=== PATIENT | male | born 1985 | race Caucasian/White ===

== ENCOUNTER 2021-11-06 21:17 | Inpatient (IN) | payer BC, SELFPAY ==
[~2021-11-06] VITALS: Ht 180.3 cm; Wt 81.6 kg
[2021-11-06 21:19] VITALS: BP 136/97
--- NOTE | 2021-11-06 21:19 | NUR ---
PT BIBA ALS. TAKEN TO BED 9. DR. HOWELL AT BEDSIDE
--- NOTE | 2021-11-06 21:20 | NUR ---
[place] [facility] AT BEDSIDE
--- NOTE | 2021-11-06 21:35 | NUR ---
POINT OF CONTACT, ; [phone]
--- NOTE | 2021-11-06 21:36 | NUR ---
PT TAKEN TO RADIOLOGY
[2021-11-06 21:48] LABS: BASOPHILS % (AUTO) 0.2 % (0.0-2.0); HEMATOCRIT 45.6 % (36-52); HEMOGLOBIN 15.3 g/dL (12.0-18.0); LYMPHOCYTES # (AUTO) 0.7 K/uL (2.0-11.5); LYMPHOCYTES % (AUTO) 4.3 % (20.5-51.1); MEAN CORPUSCULAR HEMOGLOBIN 29 pg (27-31); MEAN CORPUSCULAR HGB CONC 34 g/dL (33-37); MEAN CORPUSCULAR VOLUME 85.8 fL (80-94); MONOCYTES # (AUTO) 0.7 K/uL (0.8-1.0); MONOCYTES % (AUTO) 4.6 % (1.7-9.3); NEUTROPHILS # (AUTO) 14.5 K/uL (1.8-7.7); NEUTROPHILS % (AUTO) 90.9 % (42.2-75.2); PLATELET COUNT (AUTO) 350 K/uL (140-450); RED BLOOD CELL COUNT(AUTO) 5.31 MIL/uL (4.20-6.10); RED CELL DISTRIBUTION WIDTH 13.7 % (11.6-13.7)
--- NOTE | 2021-11-06 21:55 | NUR ---
BACK FROM CT
--- NOTE | 2021-11-06 22:01 | NUR ---
PATIENT ATTEMPTING TO GIVE URINE SAMPLE AT THIS TIME.
--- NOTE | 2021-11-06 22:05 | NUR ---
URINE WALKED OVER TO LAB AT THIS TIME.
[2021-11-06 22:15] LABS: APPEARANCE,URINE CLEAR (CLEAR); BILIRUBIN,URINE NEGATIVE (NEGATIVE); BLOOD, URINE 1+ (NEGATIVE); COLOR,URINE YELLOW (YELLOW); LEUKOCYTE ESTERASE ,URINE NEGATIVE (NEGATIVE); NITRITE, URINE NEGATIVE (NEGATIVE); UGLUCOSE NEGATIVE (NEGATIVE)
[2021-11-06 22:20] LABS: RBC,URINE 0-5 /HPF (0-5)
--- NOTE | 2021-11-06 22:20 | NUR ---
PT PLACED ON A 5150 HOLD BY YARELIS MCCOLLUM
[2021-11-06] MEDS ORDERED: NACL 0.9% 1,000 ML IV ONE (22:30)
[2021-11-06] MEDS ORDERED: cefTRIAXone 2,000 MG in DEXTROSE 5% 100 ML IV ONE (22:30)
[2021-11-06 22:31] LABS: BARBITURATE, URINE NEGATIVE ng/ml (NEG <=200); BENZODIAZEPINE, URINE NEGATIVE ng/mL (NEG <=200); CANNABINOID, URINE POSITIVE ng/mL (NEG <=50); COCAINE, URINE NEGATIVE ng/mL (NEG <=300)
[2021-11-06 22:32] LABS: OPIATE, URINE NEGATIVE ng/mL (NEG <=2000); PHENCYCLIDINE SCREEN,URINE NEGATIVE ng/mL (NEG <=25)
--- NOTE | 2021-11-06 22:59 | NUR ---
PT MOVED TO BED #6
[2021-11-06 23:06] LABS: ACETAMINOPHEN < 0.5 ug/ml (10-30); ALBUMIN 4.6 g/dL (3.4-5.0); ANION GAP 20.9 (8-16); ASPARTATE AMINOTRANSFERASE 39 U/L (15-37); CARBON DIOXIDE 22.1 mmol/L (21-32); CHLORIDE 103 mmol/L (98-107); CREATININE 1.7 mg/dL (0.6-1.3); GFR ARICAN-AMERICAN 59 mL/min (>90); GLUCOSE 164 mg/dL (74-106); SALICYLATE < 2.8 mg/dL (2.8-20.0); SODIUM SERUM 143 mmol/L (136-145); TOTAL BILIRUBIN 1.3 mg/dL (0.0-1.0); UREA NITROGEN, BLOOD 13 mg/dL (7-18)
[2021-11-06] MEDS ORDERED: cefTRIAXone 2,000 MG VIAL ONE (23:26)
--- NOTE | 2021-11-07 00:15 | NUR ---
S/W CHITRA, WHO PROVIDED ADDITIONAL INFORMATION. PER CHITRA, PT HAS HAD A GREAT DEAL OF STRESS AND FAMILY WITHIN PAST WEEK. PT HAS NOT EATEN OR SLEEP IN 3-4 DAYS PER . PER "I THINK ALL THIS IS WHAT IS CAUSING HIM TO ACT LIKE THIS."
--- NOTE | 2021-11-07 00:50 | NUR ---
LAB AT BEDSIDE
--- NOTE | 2021-11-07 00:52 | NUR ---
PT AMBULATED TO RESTROOM.
--- NOTE | 2021-11-07 01:55 | NUR ---
PT AMBULATED TO RESTROOM.
--- NOTE | 2021-11-07 02:02 | NUR ---
Patient appears to be resting comfortably in bed. Vital Signs within normal limits. Respirations even and unlabored. BOTH BED RAILS UP AND BED AT LOWEST POSITION.
[2021-11-07] MEDS: POTASSIUM CHLORIDE 10 MEQ TABER PO SCH ×3 (02:56→04:16)
--- NOTE | 2021-11-07 04:10 | NUR ---
NURYS AND RUPERTO COLLECTED AND SENT TO LAB.
--- NOTE | 2021-11-07 04:17 | NUR ---
Patient appears to be resting comfortably in bed. Vital Signs within normal limits, BLOOD PRESSURE ELEVATED, MD NOTIFIED. Respirations even and unlabored. BOTH BED RAILS DOWN AND BED AT LOWEST POSITION.
[2021-11-07] MEDS ORDERED: LACTATED RINGERS 1,000 ML IV ONE ×2 (04:30)
--- NOTE | 2021-11-07 05:00 | NUR ---
HANDOFF RECEIVED FROM KAIDEN CORRALES. ASSUMED CARE AT THIS TIME. PT SEEN IN BED, VISIBLE CHEST RISE AND FALL NOTED. 1:[address] SAFETY MEASURES IN PLACE. ALL NEEDS MET AT THIS TIME. WILL CONTINUE TO MONITOR.
--- NOTE | 2021-11-07 05:15 | NUR ---
PT AMBULATORY TO AND FROM RESTROOM, UNASSISTED. STEADY GAIT OBERSEVED.
[2021-11-07] MEDS ORDERED: NACL 0.9% 1,000 ML IV SCH (05:55)
--- NOTE | 2021-11-07 06:40 | NUR ---
RECEIVED REPORT FROM ROSY RESENDIZ, TRANSFER OF CARE AT THIS TIME. PT APPEARS RESTING IN BED WITH EVEN AND UNLABORED RESPIRSTIONS, NO SIGNS OF DISTRESS. WILL CONTINUE TO MONITOR.
--- NOTE | 2021-11-07 07:05 | NUR ---
PT SITTING UP IN BED. PT STATED "I FEEL MUCH BETTER". PT ONLY ORIENTED TO NAME. UNAWARE OF WHAT HAPPENED OR WHERE HE IS. PT DENIES HI/SI. PT HAS REDDNESS TO TOP OF FOREHEAD. PT ALSO HAS REDNESS/SWELLING ON BILATERAL WRISTS FROM HANDCUFFS/RESTRAINTS FROM PD/MEDICS PRIOR TO ARRIVAL TO ED. 1:[address], WILL CONTINUE TO MONITOR
[2021-11-07] MEDS: NACL 0.9% 1,000 ML IV SCH ×3 (07:14→19:20)
--- NOTE | 2021-11-07 07:39 | NUR ---
PATIENT APPEARS TO BE RESTING COMFORTABLY.
--- NOTE | 2021-11-07 07:55 | NUR ---
PT BEING TELEPSYCHED AT THIS TIME. PT ANSWERING SELECT QUESTIONS. RECEIVED VERBAL ORDER FROM DR AMOR FOR HALDOL 2MG IM WITH ATIVAN 2MG IM PRN FOR AGITATION.
--- NOTE | 2021-11-07 07:59 | NUR ---
PT IS EATING HIS BREAKFAST.
[2021-11-07] MEDS ORDERED: LORazepam 2 MG/ML VIAL IM PRN (08:25)
[2021-11-07] MEDS ORDERED: HALOPERIDOL IM 5 MG/ML VIAL IM PRN (08:25)
--- NOTE | 2021-11-07 08:33 | NUR ---
PT DONE WITH BREAKFAST, 50 % CONSUMED.
--- NOTE | 2021-11-07 08:53 | NUR ---
PATIENT HAS BEEN SCREENED AND CATEGORIZED LOW NUTRITION RISK. PATIENT WILL BE SEEN WITHIN 7 DAYS OF ADMISSION. 11/13/[address]
--- NOTE | 2021-11-07 08:54 | NUR ---
PATIENT SOILED BED, PROVIDED PATIENT W/ NEW BEDSHEETS, GOWN AND BLANKETS.
--- NOTE | 2021-11-07 10:25 | NUR ---
PATIENT APPEARS TO BE RESTING COMFORTABLY. ALL NEEDS MET AT THIS TIME
--- NOTE | 2021-11-07 10:41 | NUR ---
DR. ORTEZ EVALUATING PATIENT AT BEDSIDE
[2021-11-07] MEDS ORDERED: MORPHINE SULFATE 2 MG/ML SYR IVP PRN (11:20)
[2021-11-07] MEDS ORDERED: HYDROcodone/APAP 5/325 MG 1 TAB TAB PO PRN (11:20)
[2021-11-07] MEDS ORDERED: MAG SULF 2000 MG/WATER PREMIX 50 ML IV PRN (11:20)
[2021-11-07] MEDS ORDERED: ONDANSETRON 4 MG/2 ML VIAL IM/IVP PRN (11:20)
[2021-11-07] MEDS ORDERED: POTASSIUM CHLORIDE 10 MEQ TABER PO PRN (11:20)
[2021-11-07] MEDS ORDERED: ZOLPIDEM 5 MG TAB PO PRN (11:20)
[2021-11-07] MEDS ORDERED: ACETAMINOPHEN 325 MG TAB PO PRN (11:20)
[2021-11-07] MEDS ORDERED: DOCUSATE SODIUM 100 MG GELCAP PO PRN (11:20)
--- NOTE | 2021-11-07 12:29 | NUR ---
PT PROVIDED LUNCH TRAY BUT REFUSED TO EAT. PT STATED "JUST TAKE IT AWAY".
[2021-11-07] MEDS ORDERED: MIDAZOLAM 5 MG/1 ML VIAL NS ONE (13:15)
[2021-11-07] MEDS ORDERED: diphenhydrAMINE 50 MG/ML VIAL IM ONE (13:15)
[2021-11-07] MEDS ORDERED: diphenhydrAMINE 50 MG/ML VIAL ONE (13:15)
--- NOTE | 2021-11-07 13:15 | NUR ---
PT IS EXPERIENCING AUDITORY AND VISUAL HALLUCINATIONS AT THIS TIME ALONG WITH TALKING TO HIMSELF. PT REORIENTED AT THIS TIME
[2021-11-07] MEDS ORDERED: HALOPERIDOL IM 5 MG/ML VIAL IM ONE (13:20)
--- NOTE | 2021-11-07 13:29 | NUR ---
PATIENT STARTED BECOMING AGITATED, PULLED MEDICATIONS TO GIVE PRN MEDICATIONS FOR AGITATION. WHILE ATTEMPTING TO GIVE MEDICATIONS, PT BECAME EXTREMELY COMBATIVE, SCREAMING, JUMPED OUT OF BED AND ATTEMPTING TO AWOL. ANGELIQUE ROPER CALLED. YARELIS MCCOLLUM CALLED AT BEDSIDE FOR ASSISTANCE. ADMINISTERED 50 MG BENDRYL, 5 MG HALDOL AND 2 MG ATIVAN IM PER ER DOCTOR SIN ORDER. PT ASSISTED BACK TO BED, PLACED IN [address] NEELIMA POND.
[2021-11-07] MEDS ORDERED: OLANZapine 10 MG VIAL IM SCH (13:44)
[2021-11-07] MEDS ORDERED: WATER STERILE 10 ML MC ONE (13:49)
[2021-11-07] MEDS ORDERED: OLANZapine 10 MG VIAL IM ONE (13:49)
--- NOTE | 2021-11-07 14:45 | NUR ---
CALLED DR ORTEZ REGARDING IV ACCESS. PT RIPPED OUT IV DURING INCIDENT. I WILL ATTEMPT TO REINSERT IV, IF UNSUCCESSFUL, OKAY TO ADMIT TO FLOOR WITHOUT IV ACCESS.
--- NOTE | 2021-11-07 14:56 | NUR ---
RECEIVED CALL FROM [place] [facility] OFFICER BRYSON. PER OFFICER, HE IS REQUESTING THE HOSPITAL TO NOTIFY [place] [facility] NON EMERGENCY LINE WHEN HE IS BEING DISCHARGED, PT UP FOR CRIMINAL CHARGES.
--- NOTE | 2021-11-07 15:15 | NUR ---
RECEIVED REPORT FROM ER NURSE FOR CONTINUITY OF CARE. PT WAS BROUGHT FROM THE ER VIA GURNEY IN FOUR POINT RESTRAINS ACCOMPANIED BY DOPE FIRER AND NURSES. PT WAS AWAKE AND ALERT. PT WAS IN ROOM AIR AND NO SKIN WAS WARM AND DRY. BILATERAL WRITS HAD REDNESS DUE TO HAND CUFFS. PT HAD FULL ROM ON ALL EXTREMITIES. PT IS INCONTINENT AND VITAL SIGNS ARE WNL. ALL SAFETY PRECAUTIONS ARE IN PLACE AND WILL CONTINUE TO MONITOR.
--- NOTE | 2021-11-07 15:30 | NUR ---
PT TRANSFERRED TO ICU BED 8. EYES CLOSED, PERRL. MUMBLING, SPEECH INCOHERENT. SEMI FOWLERS. 4 POINT HARD RESTRAINTS BOTH ANKLES, R WRIST TO R MIDDLE OF BED, L WRIST TO L HEAD OF BED, NO S/S OF COMPROMISED SKIN INTEGRITY. ON ROOM AIR. NO F/C IN PLACE. DROPLET PRECAUTIONS IN PLACE FOR PENDING PCR. ALL SAFETY PRECAUTIONS IN PLACE. BED IN LOWEST POSITION, SIDE RAILS X2 UP. CALL LIGHT WITHIN REACH. ALL NEEDS ARE MET AT THIS TIME.
--- NOTE | 2021-11-07 15:30 | NUR ---
GAVE REPORT TO NANCY RESENDIZ FOR ADMISSION TO ICU.
--- NOTE | 2021-11-07 15:37 | NUR ---
Patient will be admitted to care of DR ORTEZ. Admited to ICU. Will go to room 8. Belongings list completed. Report to NANCY RESENDIZ.
[2021-11-07] MEDS: VALPROIC ACID 250 MG/5 ML UDC PO SCH (17:00)
[2021-11-07 17:14] VITALS: BP 151/87
--- NOTE | 2021-11-07 17:20 | NUR ---
SPOKE TO DR ORTEZ REGARDING PT REFUSAL OF BLOOD DRAW, IV INSERTION AND MEDICATION ADMINISTRATION. AWARE. TO CONTINUE TO MONITOR.
--- NOTE | 2021-11-07 19:13 | NUR ---
GAVE BEDSIDE REPORT TO AURORA RESENDIZ AND VINICIO RESENDIZ FOR CONTINUITY OF CARE.
--- NOTE | 2021-11-07 19:30 | NUR ---
ASSUMED CARE OF PT.PT ASLEEP EASILY AROUSABLE.PT LOOKS AT CLUTCH SPECIALIST WHEN QUESTION IS ASKED; DOES NOT ANSWER.ON 4 POINT RESTRAINTS.NO SIGNS OF INJURIES NOTED.ON ROOM AIR.NO SOB NOTED.SINUS ARRHYTHMIA NOTED ON MONITOR.PT NO IV ACCESS, PER AM NURSE DR NEELIMA CRUZ IS AWARE.WILL CONTINUE TO CLOSELY MONITOR PT
[2021-11-07 20:00] VITALS: BP 149/89
--- NOTE | 2021-11-07 20:00 | NUR ---
PT AWAKE,APPEARS TO BE WATCHING TV, STILL DOES NOT ANSWER QUESTIONS.STILL ON 4 POINT RESTRAINTS.WILL CONTINUE TO MONITOR PT
[2021-11-07] MEDS ORDERED: OLANZapine 5 MG TAB PO SCH (21:00)
[2021-11-07 22:00] VITALS: BP 153/68
--- NOTE | 2021-11-07 23:29 | NUR ---
PT AWAKE; INCONTINENT OF URINE; PT LET ALARM INSTALLATION TECHNICIAN CHANGED THE PADS BUT NOT THE GOWN AND THE SHEET; GETTING AGITATED. REORIENTED.WILL CONTINUE TO MONITOR PT
[2021-11-08] VITALS (12 sets, daily range): BP systolic 115–178; BP diastolic 58–106
--- NOTE | 2021-11-08 | NUR ---
NURSE AND NURSE EPIC WILLOW ANALYST AT BEDSIDE TO CHANGE RESTRAINTS POSITION;PT REFUSED AND STARTED TO GET AGITATED; SHOUTING.LEFT UNDISTURBED.
--- NOTE | 2021-11-08 00:57 | NUR ---
STAFF AT BEDSIDE TO CHANGE POSITION OF THE PTS ARMS, AT FIRST,PT RESTLESS AND AGITATED THEN HE CALMED DOWN AND LET THE STAFF DO IT.ALSO OFFERED FOOD; PT REFUSED BUT HAD A CUP OF WATER.
[2021-11-08] MEDS: NACL 0.9% 1,000 ML IV SCH ×4 (02:00→20:14)
--- NOTE | 2021-11-08 02:00 | NUR ---
PT ASLEEP; NO S/SX OF RESP DISTRESS.NO SIGNS OF PAIN NOTED.
--- NOTE | 2021-11-08 04:15 | NUR ---
BOAT TENDER AT BEDSIDE TO DRAW BLOOD; PT REFUSED.
--- NOTE | 2021-11-08 06:08 | NUR ---
PT INCONTINENT OF URINE.CLEANED.NEW PADS IN PLACE AND GOWN CHANGED.COMPLIANT WITH CARE AT THIS TIME. OFFERED FOOD,PT STILL REFUSED.GIVEN JUICE AND WATER, TOLERATED.
--- NOTE | 2021-11-08 07:30 | NUR ---
RECEIVED REPORT FROM DIAMANTE RESENDIZ. PT IN BED WITH 4 POINT RESTRAIN AWAKE RESPONSE TO QUESTION WELL.
--- NOTE | 2021-11-08 08:31 | NUR ---
PATIENT HAS BEEN CATEGORIZED HIGH NUTRITION RISK D/T REFERRAL FOR REFUSE TO EAT OVER 3 DAYS. PATIENT WILL BE SEEN TODAY. MUKESH FOREMAN RD
[2021-11-08] MEDS: VALPROIC ACID 250 MG/5 ML UDC PO SCH ×3 (09:00→17:23)
[2021-11-08] MEDS: OLANZapine 5 MG TAB PO SCH ×2 (09:00→20:14)
--- NOTE | 2021-11-08 10:00 | NUR ---
IV FLUID STARTED ON LT AC #18. BLOOD DRAW FOR LAB.
--- NOTE | 2021-11-08 10:17 | NUR ---
DC PLANNING: PATIENT WAS BIB PD FROM HOME AFTER ACTING OUT WITH HIS AND PD. PATIENT WAS PLACED ON A 5150 HOLD. FINDINGS OF RHABDOMYOLYSIS WITH CK AT 2520, LACTIC ACID 5.3, WBC 16. PSYCH EVALUATION DONE IN ED, RECOMMENDATION FOR TRANSFER TO IP PSYCH. PATIENT WAS TRANSFERRED TO ICU AFTER ANOTHER EPISODE OF ACTING OUT, ANGELIQUE JUAREZ CALLED. PATIENT IN 4 POINT RESTRAINTS, PER NURSING PATIENT IS TAKING HIS PO MEDICATIONS AND ALLOWING IV ACCESS AND LABS. PATIENT ALSO ATE MOST OF HIS BREAKFAST AND LUNCH AND IS ANSWERING QUESTIONS AT TIMES. FABIAN SPOKE WITH THE PATIENTS RN INDRA, ENDORSED F/U WITH TELEPSYCH AND POTENTIAL NEED TO HAVE THE PATIENTS 5150 RENEWED. CM SPOKE WITH THE PATIENTS BY PHONE, CONFIRMED HIS ADDRESS AND PHONE NUMBER. HE LIVES WITH HIS AND 2 CHILDREN IN A 2 STORY TOWN[place], PATIENT IS CURRENTLY NOT WORKING. HE IS INDEPENDENT IN ALL ACTIVITIES AND HAS NO DME OF H/O HOME HEALTH. FABIAN SPOKE WITH KAVEH AT TO ASK ABOUT TRANSFERRING THE PATIENT IN-NETWORK. SHE STATES THAT THE PATIENT IS MANAGED BY THE NATIONAL CM UNIT, GIVEN CONTACT FOR CM OF [facility], . FABIAN LEFT A MESSAGE FOR [facility] ASKING TO DISCUSS MOVING THE PATIENT IN-NETWORK IF HE'S OUT OF NETWORK. FABIAN WILL FOLLOW FOR NEEDS. Addendum: 11/09/21 at 1401 by Debbie Gallardo CM DC PLANNING: THE PATIENT WAS RE-EVALUATED BY PSYCHIATRY VIA TELEHEALTH, RECOMMENDATION REMAINS FOR IP PSYCH WHEN PATIENT IS STABLE. HIS CK TODAY IS 2432, PATIENT IS NOW TAKING IS PO'S AND EATING BUT IS VERY SLEEPY. FABIAN ALSO SPOKE WITH HIS ULYSSES WHO ASKED FOR AN UPDATE WHICH WAS GIVEN. WAITING FOR MEDICAL CLEARANCE TO TRANSFER TO IP PSYCH, FABIAN WILL FOLLOW FOR NEEDS. Addendum: 11/10/21 at 1350 by Debbie Gallardo CM DC PLANNING: FABIAN SPOKE WITH PATIENT AT BEDSIDE AND EXPLAINED THE CURRENT TREATMENT PLAN INCLUDING STABILIZATION OF HIS MEDICAL STATUS AND POTENTIAL TRANSFER TO FOR IP PSYCHIATRIC MANAGEMENT. ALSO ENDORSED THAT YARELIS MCCOLLUM WOULD BE COMING TO RE-EVALUATE HIM FOR A 5150 HOLD. YARELIS MCCOLLUM CAME AND EVALUATED THE PATIENT, HE DOES NOT MEET CRITERIA FOR CONTINUED 5150. FABIAN SPOKE WITH THE AIME ED DIRECTOR, NO ONE ON PREMISES TODAY THAT CAN EVALUATE FOR A 5150. MESSAGE LEFT FOR [facility] ASKING TO SPEAK WITH DR. FRASER THE MD WHO EVALUATED THE PATIENT THIS MORNING TO DISCUSS THE PLAN MOVING FORWARD. C YARELIS MCCOLLUM ALSO STATE THAT IF THE PATIENT IS GOING TO BE DISCHARGED THAT THEIR DISPATCH NUMBER NEEDS TO BE CALLED WHICH IS [phone]. FABIAN THEN SPOKE WITH DR FRASER BY PHONE TO UPDATE HER, SHE STATES THAT SHE BELIEVES THAT THE PATIENT IS GRAVELY DISABLED AND NEEDS IP PSYCHIATRIC CARE AND THAT OUTPATIENT MANAGEMENT WILL NOT BE ADEQUATE OR APPROPRIATE. FABIAN SPOKE WITH DAVID AT [facility] WHO STATES THAT WE SHOULD NOT PURSUE ANOTHER 5150 UNTIL THE PATIENT HAS BEEN MEDICALLY CLEARED HIS CK IS TOO HIGH FOR A PSYCH FACILITY TO ACCEPT HIM. HOSPITAL STAFF WHO CAN WRITE A HOLD SHOULD BE THE FIRST OPTION FOR A 5150 HOLD ONCE THE PATIENT IS MEDICALLY STABLE OPPOSED TO [place] [facility]. FABIAN WILL FOLLOW FOR NEEDS.
[2021-11-08] MEDS: METOPROLOL 25 MG TAB PO SCH ×2 (12:30→20:14)
--- NOTE | 2021-11-08 12:55 | NUR ---
CALL JACKY MCKEON [[phone]] FOR YEE OLMOS REGARDING 72 HOUR HOLD,
--- NOTE | 2021-11-08 13:41 | NUR ---
11/08/21 RD INITIAL ASSESSMENT COMPLETED PLEASE REFER TO NUTRITION ASSESSMENT UNDER CARE ACTIVITY FOR ESTIMATED NUTRITIONAL NEEDS. 1. CONTINUE REGULAR DIET TOLERATED 2. RECOMMEND MIGHTYSHAKES ORAL SUPPLEMENT BID -WILL PROVIDE [address] KCAL [address] TO FOLLOW-UP 3-5 DAYS, MODERATE RISK MUKESH FOREMAN RD
--- NOTE | 2021-11-08 14:00 | NUR ---
[facility] CALL BACK ON FACE TIME , ASK TO TALK TO PATENT BUT PT. IS TOO SLEEPY TO TALK.[[phone].
[2021-11-08 15:18] LABS: BASOPHILS # (AUTO) 0.1 K/uL (0.00-0.22); BASOPHILS % (AUTO) 0.6 % (0.0-2.0); EOSINOPHILS % (AUTO) 0.2 % (0.0-4.0); HEMATOCRIT 42.9 % (36-52); HEMOGLOBIN 14.3 g/dL (12.0-18.0); LYMPHOCYTES % (AUTO) 18.5 % (20.5-51.1); MEAN CORPUSCULAR HEMOGLOBIN 29 pg (27-31); MEAN CORPUSCULAR HGB CONC 33 g/dL (33-37); MEAN CORPUSCULAR VOLUME 86.9 fL (80-94); MONOCYTES # (AUTO) 0.9 K/uL (0.8-1.0); MONOCYTES % (AUTO) 8.1 % (1.7-9.3); NEUTROPHILS # (AUTO) 7.9 K/uL (1.8-7.7); NEUTROPHILS % (AUTO) 72.6 % (42.2-75.2); PLATELET COUNT (AUTO) 289 K/uL (140-450); RED BLOOD CELL COUNT(AUTO) 4.93 MIL/uL (4.20-6.10); RED CELL DISTRIBUTION WIDTH 14.2 % (11.6-13.7); WHITE BLOOD COUNT (AUTO) 10.9 K/uL (4.8-10.8)
--- NOTE | 2021-11-08 16:07 | NUR ---
CALLED [place] [facility] OFFICER DYAN [phone] REGARDING 5150 RENEW BY [facility],
[2021-11-08 16:32] LABS: ANION GAP 15.5 (8-16); CARBON DIOXIDE 25.5 mmol/L (21-32); CREATININE 1.1 mg/dL (0.6-1.3)
--- NOTE | 2021-11-08 16:40 | NUR ---
DR. ORTEZ ORDER TO D/C KEEP CLOSE OBSERVATION,
[2021-11-08 16:52] LABS: MAGNESIUM 2.4 mg/dL (1.8-2.4); PHOSPHORUS 2.8 mg/dL (2.5-4.9)
--- NOTE | 2021-11-08 16:55 | NUR ---
JONAH MCCOLLUM SHOW UP AND AWARE THAT PT. 5150 IS RENEW, AND PT PT, WILL BE TRANSFER TO PS FACILITY.CALL THE PD BEFORE D/C THIS PATION.
[2021-11-08 17:02] LABS: CHOL/HDL RATIO 2.9 (1-4.5)
--- NOTE | 2021-11-08 18:15 | NUR ---
DR. ORTEZ NOTIFIED PT BP IS 168/113 ORDER TO GIVE HYDRALAZINE 5MG/6HR PRN WHEN BP ABOVE 160.
--- NOTE | 2021-11-08 18:30 | NUR ---
DINNER TAKEN WELL.
--- NOTE | 2021-11-08 18:45 | NUR ---
HYDRALAZINE 5MG GIVEN ORDERED.
[2021-11-08] MEDS: hydrALAZINE 10 MG TAB PO PRN (18:51)
--- NOTE | 2021-11-08 19:06 | NUR ---
PT AWAKE AND ALERT , COOPERATIVE ,DENIED PAIN .
--- NOTE | 2021-11-08 19:20 | NUR ---
PT. SLEEPING QUIETLY, REPORT GIVE TO DIAMANTE RESENDIZ FOR CONTINUE CARE,
--- NOTE | 2021-11-08 19:30 | NUR ---
ASSUMED CARE OF PT.PT AWAKE, ABLE TO COMMUNICATE NEEDS,REFUSED FOR NURSE TO DO COMPLETE ASSESSMENT.SR ON MONITOR.W/PERIPHERAL IV TO LT F/A G18 INTACT INFUSING ORDERED IVF.ON ROOM AIR.NO SOB NOTED.DENIES N/V.ATE 100% OF DINNER.PT DID NOT URINATE AT THIS TIME.ABLE TO MOVE ALL EXTREMITIES .WILL CONTINUE TO CLOSELY MONITOR PT.
--- NOTE | 2021-11-08 20:15 | NUR ---
PHONE CALL FROM PTS ULYSSES, UPDATED ON PTS PRESENT CONDITION.QUESTIONS ANSWERED.NOTIFIED ULYSSES PT REFUSED TO TALK TO HER AT THIS TIME
--- NOTE | 2021-11-08 22:00 | NUR ---
PT USED CALL LIGHT.NURSE WENT INSIDE THE ROOM AND ASKED PT WHAT HE NEEDS,PT JUST STARED ON THE NURSE/AUTOMOBILE BODY REPAIRER HELPER AND DIDN'T SAY ANYTHING.NO S/SX OFP AIN NOTED.WILL CONTINUE TO CLOSELY MONITOR PT
[2021-11-09] VITALS (11 sets, daily range): BP systolic 120–173; BP diastolic 53–110
--- NOTE | 2021-11-09 | NUR ---
PT ASLEEP EASILY AROUSABLE ;ON ROOM AIR.NO SOB NOTED.DENIES PAIN
--- NOTE | 2021-11-09 02:00 | NUR ---
PT ASLEEP;EASILY AROUSABLE.IV ACCESS INTACT WITH IVF INFUSING.DENIES PAIN.NO SOB ON ROOM AIR
--- NOTE | 2021-11-09 04:25 | NUR ---
PTS CONDITION REMAINS UNCHANGED.PT DID NOT URINATE YET; REFUSED TO BE CHECKED.WILL STARE AT NURSE IF QUESTIONED.
[2021-11-09] MEDS: NACL 0.9% 1,000 ML IV SCH ×4 (04:38→20:34)
--- NOTE | 2021-11-09 04:59 | NUR ---
TOPPER PRESS OPERATOR AT BEDSIDE WITH RN, INITIALLY PT REFUSED BLOOD DRAW; EXPLAINED TO PT THE NEED TO CHECK LABS, PT THEN AGREED. ALSO ASKED PT TO URINATE USING URINAL ,ABLE TO DO SO W/ 200ML OF LIGHT JERRY COLORED URINE
--- NOTE | 2021-11-09 06:18 | NUR ---
PT AWAKE WATCHING TV.PT NOT TALKING AT THIS TIME;PT ANSWERS QUESTIONS BY NODDING/SHAKING HEAD ONLY.STILL REFUSING MORNING CARE AND ORAL CARE.SHOOK HEAD WHEN ASKED IF HE IS IN PAIN.ALSO INFORMED HIM THAT ULYSSES CALLED.HE SHOOK HEAD WHEN ASKED IF HE WANTS TO TALK TO .
[2021-11-09 06:21] LABS: BASOPHILS % (AUTO) 0.4 % (0.0-2.0); EOSINOPHILS # (AUTO) 0.1 K/uL (0-0.4); EOSINOPHILS % (AUTO) 1.6 % (0.0-4.0); HEMOGLOBIN 13.1 g/dL (12.0-18.0); LYMPHOCYTES # (AUTO) 2.1 K/uL (2.0-11.5); LYMPHOCYTES % (AUTO) 24.9 % (20.5-51.1); MEAN CORPUSCULAR HEMOGLOBIN 29 pg (27-31); MEAN CORPUSCULAR HGB CONC 34 g/dL (33-37); MEAN CORPUSCULAR VOLUME 86.1 fL (80-94); MONOCYTES # (AUTO) 0.7 K/uL (0.8-1.0); MONOCYTES % (AUTO) 8.4 % (1.7-9.3); NEUTROPHILS # (AUTO) 5.4 K/uL (1.8-7.7); NEUTROPHILS % (AUTO) 64.7 % (42.2-75.2); PLATELET COUNT (AUTO) 251 K/uL (140-450); RED BLOOD CELL COUNT(AUTO) 4.53 MIL/uL (4.20-6.10); RED CELL DISTRIBUTION WIDTH 13.7 % (11.6-13.7); WHITE BLOOD COUNT (AUTO) 8.4 K/uL (4.8-10.8)
[2021-11-09 06:26] LABS: ANION GAP 11.7 (8-16); CARBON DIOXIDE 28.9 mmol/L (21-32); CREATININE 1.1 mg/dL (0.6-1.3); POTASSIUM 3.6 mmol/L (3.5-5.1)
[2021-11-09 06:43] LABS: MAGNESIUM 2.3 mg/dL (1.8-2.4); PHOSPHORUS 3.4 mg/dL (2.5-4.9)
[2021-11-09] MEDS: OLANZapine 5 MG TAB PO SCH ×2 (08:19→20:41)
[2021-11-09] MEDS: VALPROIC ACID 250 MG/5 ML UDC PO SCH ×3 (08:19→17:20)
[2021-11-09] MEDS: METOPROLOL 25 MG TAB PO SCH ×2 (08:19→20:41)
--- NOTE | 2021-11-09 08:26 | NUR ---
SCHEDULE MED TAKEN , DRINK JUICE DOES NOT BREAKFAST AT THIS TIME..
--- NOTE | 2021-11-09 11:30 | NUR ---
SW CALL THE [facility] TO MAKE SURE PATIENT'S 5150 HOLD, CLINICALS PACKET, AND INFORMATION HAS BEEN RECEIVED AND PROCESS FOR PLACEMENT SEARCH TO PSYCH FACILITY. PER TIEN NO INFORMATION WAS SEND TO THEM OF TODAY 11/09/2021 ABOUT 11:30 AM. SW DISCUSS PATIENT'S STATUS AND WILL SEND CLINICAL PACKET. SW CALL THE [facility] TO CONFIRMED THAT PATIENT'S CLINICALS PACKET HAS BEEN SEND AND PROCESS. PER AMMY NO PACKET HAS BEEN RECEIVED OF 12:00PM SW WILL RE -SEND PACKET TO [facility]. Addendum: 11/09/21 at 1706 by Shelly WILLSON MARITZA SPOKE WITH THE PATIENTS ASTRID MENDEZ, VAISHALI F/U WITH POTENTIAL NEED TO HAVE THE PATIENTS 5150 RENEWED. CURRENT 5150 HOLD WILL BE EXPIRING TONIGHT AT ABOUT 21:48. MARITZA ALSO EXPLAINED TO RN THE NEED FOR NEW 5150 HOLD TO BE FAX TO [facility] AT TO CONTINUE SEARCH FOR PSYCH PLACEMENT, RN AGREED AND SW/CM WILL FOLLOW UP NEEDED.
--- NOTE | 2021-11-09 12:30 | NUR ---
AWAKE EATING LUNCH QUIETLY NO COMPLAIN.
--- NOTE | 2021-11-09 13:15 | NUR ---
OOB TO BATH ROOM WASH UP HIMSELF DENIED PAIN,.
--- NOTE | 2021-11-09 15:39 | NUR ---
TALK TO DR. NORMAN SHE WILL CALL PT ULYSSES .
--- NOTE | 2021-11-09 16:10 | NUR ---
TRANSFER TO MED SURG IN WHEELCHAIR BY CHERRI MAYO IS AWAKE AND CALM.
--- NOTE | 2021-11-09 16:32 | NUR ---
RECIEVE PATIENT FROM ICU, PATIENT IS AX4 BREATHING EVEN UNLABORED, NO COMPLAIN NO SOD NOTED, STABLE. PATIENT IS ON 5150 HOLD, ALL SAFETY MEASURES ON PLACE CALLS LIGHT WITHIN REACH
--- NOTE | 2021-11-09 17:34 | NUR ---
Packet received for placement S/W patient ASTRID Samuel regarding date of 5553. Date written is unclear. She will call back with date
--- NOTE | 2021-11-09 19:25 | NUR ---
FULL BED SIDE REPORT GIVEN TO DATA MANAGEMENT ASSOCIATE NURSE, ENDORSE TO DATA MANAGEMENT ASSOCIATE NURSE TO FOLLOW UP WITH 5150 HOLD AND [facility]FORM [facility] WITH 5150 HOLD DATE, PHONE NUMBER AND FAX GIVEN TO THE DATA MANAGEMENT ASSOCIATE NURSE FOR FOLLOW UP. ENDORSE TO DATA MANAGEMENT ASSOCIATE NURSE ALSO PSYCHIATRIC WILL CALL TO GET INFO AND UPDATE ABOUT THE PATIENT AND HAVE A FACETIME CALL WITH THE PATIENT
--- NOTE | 2021-11-09 19:26 | NUR ---
RECEIVED REPORT FROM AM SHIFT NURSE FOR CONTINUITY OF CARE. PT AWAKE, ALERT SITTING IN BED NAD. BREATHING IS EVEN AND UNLABORED. SKIN IS WARM, DRY AND INTACT. IV ON LEFT FA 18G RUNNING NS @150MLS/HR. ON 5150 HOLD. CALL LIGHT WITHIN REACH. ALL SAFETY MEASURES IN PLACE. WILL CONTINUE TO MONITOR.
--- NOTE | 2021-11-09 20:41 | NUR ---
SCHEDULED MEDICATION ADMINISTERED ORDERED. PT TOLERATED IT WELL. WILL CONTINUE TO MONITOR.
--- NOTE | 2021-11-09 20:48 | NUR ---
S/W SANA Stringer regarding patient's 5150. Stated that it has and won't written till the AM. Have only fax to [facility] for review. If accepted patient will need a new 5150 if criteria still meets
--- NOTE | 2021-11-09 22:50 | NUR ---
ROUNDED ON PT. PT SLEEPING NO S/S OF DISTRESS. ALL SAFETY MEASURES IN PLACE. WILL CONTINUE TO MONITOR.
--- NOTE | 2021-11-10 01:05 | NUR ---
ROUNDED ON PT. PT SLEEPING NAD. STILL ON 1:1 SITTER. ALL SAFETY MEASURES IN PLACE.WILL CONTINUE TO MONITOR.
--- NOTE | 2021-11-10 03:08 | NUR ---
ROUNDED ON PT. PT SLEEPING. NAD. RESPIRATIONS EVEN AND UNLABORED. REMAINS WITH 1:1 SITTER. ALL SAFETY MEASURES IN PLACE. WILL CONTINUE TO MONITOR.
[2021-11-10 04:00] VITALS: BP 127/86
--- NOTE | 2021-11-10 05:18 | NUR ---
ROUNDED ON PT. PT AWAKE RESTING IN BED. NAD. RESPIRATIONS EVEN AND UNLABORED. NO COMPLAINTS MADE. ALL SAFETY MEASURES IN PLACE. WILL CONTINUE TO MONITOR.
[2021-11-10] MEDS: NACL 0.9% 1,000 ML IV SCH ×4 (07:06→22:15)
[2021-11-10 07:10] LABS: BASOPHILS % (AUTO) 0.3 % (0.0-2.0); EOSINOPHILS # (AUTO) 0.2 K/uL (0-0.4); EOSINOPHILS % (AUTO) 2.4 % (0.0-4.0); HEMATOCRIT 39.6 % (36-52); LYMPHOCYTES # (AUTO) 1.7 K/uL (2.0-11.5); MEAN CORPUSCULAR HGB CONC 34 g/dL (33-37); MONOCYTES # (AUTO) 0.5 K/uL (0.8-1.0); NEUTROPHILS # (AUTO) 4.3 K/uL (1.8-7.7); RED BLOOD CELL COUNT(AUTO) 4.58 MIL/uL (4.20-6.10)
--- NOTE | 2021-11-10 07:20 | NUR ---
ENDORSED PT TO AM SHIFT NURSE FOR CONTINUITY OF CARE. PT IS STABLE.
[2021-11-10 07:23] LABS: HEMOGLOBIN 13.3 g/dL (12.0-18.0); LYMPHOCYTES % (AUTO) 25.3 % (20.5-51.1); MEAN CORPUSCULAR HEMOGLOBIN 29 pg (27-31); MEAN CORPUSCULAR VOLUME 86.3 fL (80-94); PLATELET COUNT (AUTO) 272 K/uL (140-450); RED CELL DISTRIBUTION WIDTH 13.7 % (11.6-13.7); WHITE BLOOD COUNT (AUTO) 6.6 K/uL (4.8-10.8)
[2021-11-10 07:28] LABS: PHOSPHORUS 3.3 mg/dL (2.5-4.9)
[2021-11-10 07:35] LABS: MAGNESIUM 1.4 mg/dL (1.8-2.4)
--- NOTE | 2021-11-10 08:00 | NUR ---
RECEIVED REPORT FROM PM NURSE, PATIENT IS RESTING IN BED, AAO x4, DENIES PAIN/DISCOMFORT. RESPIRATIONS EVEN AND UL ON RA, LS CTA. PULSES PALPABLE, CAP REFILL <3 SECONDS. DENIES CP/CARDIAC DISCOMFORT. BS ACTIVE x4, ABD SOFT AND FLAT. NS INFUSING TO IV SITE PER MD ORDER, IV SITE WNL. ALL NEEDS MET. BED IN LOWEST POSITION, CALL LIGHT IN REACH, SAFETY MEASURES IN PLACE. WILL CONT TO MONITOR. SITTER AT BEDSIDE.
[2021-11-10] MEDS: VALPROIC ACID 250 MG/5 ML UDC PO SCH ×3 (08:38→16:39)
[2021-11-10] MEDS: OLANZapine 5 MG TAB PO SCH ×2 (08:39→21:05)
[2021-11-10] MEDS: METOPROLOL 25 MG TAB PO SCH ×2 (08:40→21:05)
--- NOTE | 2021-11-10 12:32 | NUR ---
S/W FABIAN Pat. States [place] coming in to write new 5150 for further placement. Pat will fax new [phone] once written
[2021-11-10 16:00] VITALS: BP 143/94
--- NOTE | 2021-11-10 18:29 | NUR ---
PATIENT IS RESTING IN BED, AAO x4, DENIES PAIN/DISCOMFORT. RESPIRATIONS EVEN AND UL ON RA. NS INFUSING TO LAC PER MD ORDER, IV SITE WNL. NO SIGNIFICANT CHANGES THROUGHOUT SHIFT. ALL NEEDS MET. BED IN LOWEST POSITION, CALL LIGHT IN REACH, SAFETY MEASURES IN PLACE. WILL CONT TO MONITOR AND ENDORSE TO PM NURSE.
--- NOTE | 2021-11-10 19:12 | NUR ---
REPORT GIVEN TO PM NURSE FOR CONTINUITY OF CARE.
--- NOTE | 2021-11-10 19:13 | NUR ---
RECEIVED REPORT FROM AM SHIFT NURSE FOR CONTINUITY OF CARE. PT IS AWAKE, A&OX4. NO S/S OF DISTRESS. ON ROOM AIR. RESPIRATIONS EVEN AND UNLABORED. SKIN IS WARM, DRY AND INTACT. DENIES PAIN. PT IS AMBULATORY. SITTER AT BEDSIDE. IV ON LEFT FA 18G RUNNING NS @ 150ML/HR. ALL SAFETY MEASURES IN PLACE. WILL CONTINUE TO MONITOR.
[2021-11-10 20:00] VITALS: BP 140/69
--- NOTE | 2021-11-10 21:05 | NUR ---
SCHEDULED MEDICATIONS ADMINISTERED ORDERED. PT TOLERATED WELL. WILL CONTINUE TO MONITOR.
--- NOTE | 2021-11-10 23:15 | NUR ---
CHECKED ON PT, ON BED SLEEPING. NO S/S OF DISTRESS. RESPIRATIONS EVEN AND UNLABORED. WILL CONTINUE TO MONITOR.
--- NOTE | 2021-11-11 01:25 | NUR ---
MADE ROUNDS ON PT. SLEEPING NO S/S OF DISTRESS. SITTER AT BEDSIDE.
--- NOTE | 2021-11-11 03:27 | NUR ---
MADE ROUNDS ON PT. SLEEPING NO S/S OF DISTRESS. RESPIRATIONS EVEN AND UNLABORED. SITTER AT BEDSIDE
[2021-11-11 04:00] VITALS: BP 134/75
--- NOTE | 2021-11-11 05:35 | NUR ---
MADE ROUNDS ON PT. AWAKE IN BED. NO COMPLAINTS MADE. CHANGED PT BEDSHEETS AND GOWN. ALL SAFETY PRECAUTIONS IN PLACE.
[2021-11-11 06:54] LABS: BASOPHILS % (AUTO) 0.7 % (0.0-2.0); EOSINOPHILS # (AUTO) 0.2 K/uL (0-0.4); EOSINOPHILS % (AUTO) 3.4 % (0.0-4.0); HEMATOCRIT 38.7 % (36-52); MEAN CORPUSCULAR HEMOGLOBIN 29 pg (27-31); MEAN CORPUSCULAR HGB CONC 34 g/dL (33-37); MEAN CORPUSCULAR VOLUME 86.4 fL (80-94); MONOCYTES # (AUTO) 0.5 K/uL (0.8-1.0); MONOCYTES % (AUTO) 7.6 % (1.7-9.3); NEUTROPHILS # (AUTO) 3.3 K/uL (1.8-7.7); NEUTROPHILS % (AUTO) 55.3 % (42.2-75.2); PLATELET COUNT (AUTO) 271 K/uL (140-450); RED BLOOD CELL COUNT(AUTO) 4.47 MIL/uL (4.20-6.10); RED CELL DISTRIBUTION WIDTH 13.7 % (11.6-13.7)
--- NOTE | 2021-11-11 07:15 | NUR ---
ENDORSED PT TO AM SHIFT NURSE FOR CONTINUITY OF CARE. PT IS STABLE.
[2021-11-11 07:59] LABS: ANION GAP 17.1 (8-16); CARBON DIOXIDE 25.7 mmol/L (21-32); CREATININE 1.1 mg/dL (0.6-1.3); POTASSIUM 3.8 mmol/L (3.5-5.1)
--- NOTE | 2021-11-11 08:00 | NUR ---
RECEIVED REPORT FROM POLITICAL ANALYST FOR CONTINUITY OF CARE. PATIENT ALERT AWAKE ORIENTED X4, NOT IN ANY DISTRESS NOTED. ON ONE TO ONE SITTER. DENIES PAIN. NO SUICIDAL IDEATION NOTED. WITH IVF ON GOING AND INFUSING WELL. NEEDS ATTENDED. WILL CONTINUE TO MONITOR.
[2021-11-11] MEDS: OLANZapine 5 MG TAB PO SCH ×2 (08:20→20:58)
[2021-11-11] MEDS: VALPROIC ACID 250 MG/5 ML UDC PO SCH ×3 (08:20→17:21)
[2021-11-11] MEDS: METOPROLOL 25 MG TAB PO SCH ×2 (08:21→20:58)
[2021-11-11] MEDS: hydrALAZINE 10 MG TAB PO PRN ×2 (08:21→12:59)
[2021-11-11 08:56] LABS: MAGNESIUM 2.3 mg/dL (1.8-2.4); PHOSPHORUS 3.7 mg/dL (2.5-4.9)
[2021-11-11 09:09] LABS: CREATINE KINASE MB 0.4 ng/mL (0-3.6)
[2021-11-11] MEDS: NACL 0.9% 1,000 ML IV SCH ×3 (10:00→21:31)
--- NOTE | 2021-11-11 12:00 | NUR ---
PATIENT RESTING, NO C/O PAIN. REMAINS CALM, CALLED AND SPOKE TO THE PATIENT ASKING FOR UPDATE. WILL CONTINUE TO MONITOR.
[2021-11-11 16:00] VITALS: BP 130/76
--- NOTE | 2021-11-11 18:36 | NUR ---
FOLLOW UP WITH DR. MOREAU THE PLAN OF CARE. WAITING FOR THE IN PATIENT PSYCH, 5150 HOLD NOT RENEWED. WILL CONTINUE TO MONITOR.
--- NOTE | 2021-11-11 19:29 | NUR ---
REPORT GIVEN TO THE DIRECTOR MUSIC FOR CONTINUITY OF CARE. PATIENT IN STABLE CONDITION.
--- NOTE | 2021-11-11 19:30 | NUR ---
RECEIVED REPORT FROM MORNING SHIFT NURSE FOR CONTINUITY OF CARE. PT IS AWAKE AND ALERT. A&OX4. VERBALLY RESPONSIVE AND ABLE TO COMMUNICATE NEEDS. DENIES PAIN AT THIS TIME. NO APPARENT S/SX OF ACUTE DISTRESS. ON RA WITH BREATHING UNLABORED. PT IS AMBULATORY. CONTINENT OF BOWEL AND BLADDER. SKIN IS WARM AND DRY. IV SITE ON THE LEFT FOREARM 18G IS PATENT/INTACT. PLAN OF CARE AND WHITE COMMUNICATION BOARD UPDATED. BED IN LOW/LOCKED POSITION. CALL LIGHT WITHIN REACH. WILL CONTINUE TO MONITOR.
--- NOTE | 2021-11-11 21:00 | NUR ---
Patient's Plan of Care was discussed and reviewed with MACHINIST FIRST CLASS: OSORIO PAULINO
--- NOTE | 2021-11-11 21:01 | NUR ---
ADMINISTERED SCHEDULED MEDICATIONS PER MD ORDER. PATIENT TOLERATED MEDICATIONS WELL. NO ADVERSE REACTION NOTED. PATIENT DENIES PAIN. RESPIRATIONS EVEN AND UNLABORED. NO APPARENT S/SX OF ACUTE DISTRESS. WHITE BOARD COMMUNICATION UPDATED. ALL SAFETY MEASURES IN PLACE. CALL LIGHT WITHIN REACH. WILL CONTINUE TO MONITOR.
--- NOTE | 2021-11-11 23:00 | NUR ---
CHECKED PATIENT. STABLE AND RESTING COMFORTABLY IN BED. CHEST IS RISING AND FALLING. RESPIRATIONS EVEN AND UNLABORED. NO APPARENT S/SX OF ACUTE DISTRESS. 1:1 SITTER PRESENT. WHITE COMMUNICATION BOARD UPDATED. ALL SAFETY MEASURES IN PLACE. CALL LIGHT WITHIN REACH. WILL CONTINUE TO MONITOR.
[2021-11-12] VITALS: BP 137/75
--- NOTE | 2021-11-12 01:00 | NUR ---
CURRENTLY 1:1 WITH PATIENT. STABLE AND SLEEPING COMFORTABLY IN BED. CHEST IS RISING AND FALLING. RESPIRATIONS EVEN AND UNLABORED. NO APPARENT S/SX OF ACUTE DISTRESS. WHITE COMMUNICATION BOARD UPDATED. ALL SAFETY MEASURES IN PLACE. CALL LIGHT WITHIN REACH. WILL CONTINUE TO MONITOR.
--- NOTE | 2021-11-12 03:00 | NUR ---
CURRENTLY 1:1 WITH PATIENT. STABLE AND SLEEPING COMFORTABLY IN BED. CHEST IS RISING AND FALLING. RESPIRATIONS EVEN AND UNLABORED. NO APPARENT S/SX OF ACUTE DISTRESS. ALL SAFETY MEASURES IN PLACE. CALL LIGHT WITHIN REACH. WILL CONTINUE TO MONITOR.
--- NOTE | 2021-11-12 05:00 | NUR ---
PATIENT CAME OUT OF THE BATHROOM AND IS REQUESTING FOR NEW SET OF FITTED SHEETS, 2 BLANKETS, 2 PILLOWCASES, AND A NEW GOWN.
[2021-11-12] MEDS: NACL 0.9% 1,000 ML IV SCH ×2 (06:00→13:10)
--- NOTE | 2021-11-12 06:00 | NUR ---
PATIENT IS COMPLAINING OF IV SITE LEAKING. ASSESSED IV LINE AND CONFIRMED IT IS LEAKING. ESTABLISHED A NEW IV LINE ON RIGHT HAND 22G. PATENT, INTACT AND FLUSHING WELL. IV PUMP MACHINE MOVED TO THE RIGHT SIDE. PATIENT VERBALIZES HE IS THANKFUL FOR ESTABLISHING A NEW IV LINE. PATIENT DENIES PAIN AT THIS TIME. RESPIRATIONS EVEN AND UNLABORED. NO APPARENT S/SX OF ACUTE DISTRESS. ALL SAFETY MEASURES IN PLACE. CALL LIGHT WITHIN REACH. WILL CONTINUE TO MONITOR.
[2021-11-12 06:18] LABS: BASOPHILS % (AUTO) 0.4 % (0.0-2.0); EOSINOPHILS # (AUTO) 0.2 K/uL (0-0.4); EOSINOPHILS % (AUTO) 2.8 % (0.0-4.0); HEMATOCRIT 39.3 % (36-52); HEMOGLOBIN 13.2 g/dL (12.0-18.0); LYMPHOCYTES # (AUTO) 2.1 K/uL (2.0-11.5); LYMPHOCYTES % (AUTO) 36.2 % (20.5-51.1); MEAN CORPUSCULAR HEMOGLOBIN 29 pg (27-31); MEAN CORPUSCULAR HGB CONC 34 g/dL (33-37); MEAN CORPUSCULAR VOLUME 86.7 fL (80-94); MONOCYTES # (AUTO) 0.5 K/uL (0.8-1.0); MONOCYTES % (AUTO) 8.2 % (1.7-9.3); NEUTROPHILS # (AUTO) 3.1 K/uL (1.8-7.7); NEUTROPHILS % (AUTO) 52.4 % (42.2-75.2); PLATELET COUNT (AUTO) 267 K/uL (140-450); RED BLOOD CELL COUNT(AUTO) 4.53 MIL/uL (4.20-6.10); RED CELL DISTRIBUTION WIDTH 13.5 % (11.6-13.7); WHITE BLOOD COUNT (AUTO) 5.9 K/uL (4.8-10.8)
[2021-11-12 06:31] LABS: ANION GAP 11.4 (8-16); CARBON DIOXIDE 30.1 mmol/L (21-32); CREATININE 1.1 mg/dL (0.6-1.3); POTASSIUM 3.5 mmol/L (3.5-5.1)
[2021-11-12 06:56] LABS: MAGNESIUM 2.1 mg/dL (1.8-2.4); PHOSPHORUS 3.4 mg/dL (2.5-4.9)
--- NOTE | 2021-11-12 07:10 | NUR ---
ENDORSED PATIENT TO MORNING SHIFT NURSE FOR CONTINUITY OF CARE. PATIENT IS STABLE.
[2021-11-12 08:00] VITALS: BP 154/85
--- NOTE | 2021-11-12 08:00 | NUR ---
RECEIVED REPORT FROM [facility] FOR CONTINUITY OF CARE. PATIENT ALERT AWAKE ORIENTED X4, NOT IN ANY DISTRESS NOTED. WITH ONE TO ONE SITTER. NO SUICIDAL IDEATION NOTED. PATIENT CALM AND QUIET. WITH IVF ON GOING AND INFUSING WELL. NEEDS ATTENDED. WILL CONTINUE TO MONITOR.
[2021-11-12] MEDS: METOPROLOL 25 MG TAB PO SCH (08:38)
[2021-11-12] MEDS: VALPROIC ACID 250 MG/5 ML UDC PO SCH ×3 (08:38→17:12)
[2021-11-12] MEDS: OLANZapine 5 MG TAB PO SCH (08:38)
--- NOTE | 2021-11-12 10:26 | NUR ---
SEEN BY DR. MOREAU AND ORDER TO FOLLOW UP WITH PSYCH TODAY. WILL CONTINUE TO MONITOR.
--- NOTE | 2021-11-12 14:29 | NUR ---
PSYCH RE EVAL STARTED AND MD STILL TALKING TO THE PATIENT. WILL CONTINUE TO MONITOR.
[2021-11-12 16:00] VITALS: BP 138/76
--- NOTE | 2021-11-12 16:23 | NUR ---
CALLED PSYCH OFFICE AND SPOKE TO PRATIMA, PATIENT CAN BE DC AND NEEDS PSYCH OUTPATIENT FOLLOW UP. SHE GAVE APPOINTMENT ON Saturday11/15/21 @ 2 PM. HE WILL FOLLOW UP WITH NURSE PRACTITIONER MARITZA PRUITT . CALLED [facility] AND THEY SAID THEY WILL BE HERE ONCE PRIMARY MD HAS DC ORDER. WILL NOTIFY DR. MOREAU.
[2021-11-12] MEDS ORDERED: DIVA250E1 PO (16:49)
[2021-11-12] MEDS ORDERED: LISI-486 PO (16:49)
[2021-11-12] MEDS ORDERED: OLAN2.5T1 PO (16:49)
--- NOTE | 2021-11-12 17:30 | NUR ---
REPORT GIVEN TO YARELIS MCCOLLUM, NOTIFIED ULYSSES.
--- NOTE | 2021-11-12 17:43 | NUR ---
PATIENT DISCHARGED GREETING CARD WRITER BY YARELIS MCCOLLUM. PATIENT IN STABLE CONDITION. IV REMOVED. Addendum: 11/12/21 at 1927 by Neris Talamantes RN PATIENT ULYSSES CAME TO SIGN PAPERWORKS. DISCHARGE INSTRUCTION GIVEN AND VERBALIZED UNDERSTANDING.
== END 2021-11-12 17:45 | disposition home or self-care (01) | DRG 917 ==
LOC: MED 21:17 → MTU 11-07 05:54 → MED 11-07 05:54 → MIC 11-07 14:47 → MTU 11-09 16:48
DX: T40.713A Poisoning by cannabis, assault, initial encounter (principal); G92.9 Unspecified toxic encephalopathy; N17.0 Acute kidney failure with tubular necrosis; M62.82 Rhabdomyolysis; F29 Unspecified psychosis not due to a substance or known physiological condition; D72.829 Elevated white blood cell count, unspecified; E86.0 Dehydration; E87.6 Hypokalemia; F31.9 Bipolar disorder, unspecified; Z20.822 Contact with and (suspected) exposure to COVID-19; Y92.89 Other specified places as the place of occurrence of the external cause
CPT/HCPCS: 36415; 70450; 71045; 80048; 80053; 80305; 81001; 82550; 82553; 83605; 83735; 84100; 84484; 85025; 87040; 87086; 93005; 96361; 96365; 96372; 99285; G0480; G0482; J0696; J1200; J1630; J2060; J3490; J7060; U0003